=== PATIENT | female | born 2005 | race Two or more races ===

== ENCOUNTER 2024-12-08 15:44 | Emergency (ER) | payer OTHER ==
[~2024-12-08] VITALS: Ht 157.5 cm; Wt 61.2 kg
[2024-12-08 15:49] VITALS: TEMP 98.1
[2024-12-08] MEDS ORDERED: IBUPROFEN 600 MG TABLET ONE (16:13)
[2024-12-08] MEDS: IV NS 0.9% 1,000 ML BAG IV ONE (16:20)
[2024-12-08] MEDS: IBUPROFEN 600 MG TABLET PO ONE (16:20)
[2024-12-08 16:31] LABS: HEMATOCRIT 36 % (33-45); HEMOGLOBIN 12.6 g/dL (11.5-14.8); LYMPHOCYTES # (AUTO) 1.5 K/uL (0.8-4.8); LYMPHOCYTES % (AUTO) 8.8 % (20.0-44.0); MEAN CORPUSCULAR HEMOGLOBIN 27 PG (26.0-33.0); MEAN CORPUSCULAR HGB CONC 35 g/dl (31.0-36.0); MEAN CORPUSCULAR VOLUME 79 fL (82-100); MONOCYTES # (AUTO) 1.5 K/uL (0.1-1.30); MONOCYTES % (AUTO) 8.7 % (2.0-12.0); NEUTROPHILS # (AUTO) 14.5 K/uL (1.8-8.9); NEUTROPHILS % (AUTO) 82.5 % (43.0-81.0); PLATELET COUNT (AUTO) 314 K/uL (150-450); WHITE BLOOD COUNT (AUTO) 17.5 K/uL (4.3-11.0)
[2024-12-08 16:50] LABS: CALCIUM, SERUM 9.1 mg/dL (8.5-10.1); CARBON DIOXIDE 24 mmol/L (21-32); CHLORIDE 108 mmol/L (98-107); CREATININE 0.7 mg/dL (0.6-1.3); GLUCOSE 119 mg/dL (74-106); POTASSIUM 3.6 mmol/L (3.5-5.1); SODIUM SERUM 142 mmol/L (136-145); UREA NITROGEN, BLOOD 8 mg/dL (7-18)
[2024-12-08 16:55] LABS: ALANINE AMINOTRANSFERASE 9 U/L (12-78); ALBUMIN 2.7 g/dL (3.4-5.0); ALKALINE PHOSPHATASE 112 U/L (46-116); ASPARTATE AMINOTRANSFERASE 6 U/L (15-37); BILIRUBIN,DIRECT 0.1 mg/dL (0.0-0.2); BILIRUBIN,TOTAL 0.2 mg/dL (0.2-1.0); NT-PRO BNP 886 pg/mL (0-125); TOTAL PROTEIN, SERUM 7.1 g/dL (6.4-8.2)
[2024-12-08 18:54] VITALS: BP 120/75; O2SAT 98
== END 2024-12-08 18:55 | disposition home or self-care (01) ==
LOC: ER 15:55
DX: R07.89 Other chest pain (principal); R09.81 Nasal congestion; R51.9 Headache, unspecified; R10.2 Pelvic and perineal pain
CPT/HCPCS: 99285; 96360; 71045; 93005; 85025; 80048; 80076; 36415; 84484; 83880; 84702; J7030